=== PATIENT | male | born 1970 | race Caucasian/White ===

== ENCOUNTER 2021-10-05 20:32 | Emergency (ER) | payer OTHER ==
[2021-10-05] MEDS ORDERED: Sodium Chloride 0.9% 1000 ML 1,000 ML IV STA (20:44)
[2021-10-05] MEDS ORDERED: Sodium Chloride 0.9% 1000 ML 1,000 ML ONE (20:52)
[2021-10-05 21:06] LABS: Absolute Neutrophil Ct (ANC) 6.12 (1.4-6.9); Basophil (Absolute #) 0 (0-0.4); Eosinophil (Absolute #) 0 (0-0.5); Hemoglobin 13.8 gm/dl (12.5-18.0); Lymphocytes % 7.2 % (24.0-44.0); Mean Corpuscular Hemoglobin 29.6 pg (26-32); Mean Corpuscular Hgb Concent. 33.7 g/dl (32-36); Mean Platelet Volume 10.2 fl (7.5-11.0); Monocyte (Absolute #) 0.33 (0.0-1.3); Monocytes % 4.7 % (0.0-12.0); Neutrophil % 88.1 % (36.0-66.0); Platelet Count 180 K/mm3 (150-450); Red Blood Count 4.66 M/mm3 (4.1-5.6); Red Cell Distribution Width 12.1 % (11.5-14.0)
--- NOTE | 2021-10-05 21:14 | ERPHSYRPT ---
- History of Present Illness Time Seen by Provider: 10/05/21 21:10 Source: patient Physician History: Patient is a 51-year-old male presents to our ED for evaluation of generalized body aches and shortness of breath. Patient symptoms started approximately 9 days ago. Symptoms have been progressive. Patient took a home Covid test today which resulted as positive. Symptoms are constant. Symptoms are moderate in intensity. No specific worsening or improving factors. Patient denies associa steffanie chest pain. No nausea vomiting or diaphoresis. No diarrhea. No rash. Patient states he is otherwise healthy. He voices no other complaints or concerns at this time. Timing/Duration: day(s) Severity: moderate Modifying Factors: Improves With: nothing Associated Symptoms: shortness of breath, No nausea, No vomiting, No abdominal pain, No diaphoresis, No cough, No chills, No headaches, No syncope, No seizure, No weakness Allergies/Adverse Reactions: Penicillins Allergy (Verified 10/05/21 20:43) - Review of Systems Constitutional: No Symptoms, No Fever, No Chills Eyes: No Symptoms Ears, Nose, & Throat: No Symptoms Respiratory: No Symptoms, No Cough, No Dyspnea Cardiac: No Symptoms, No Chest Pain, No Edema, No Syncope Abdominal/Gastrointestinal: No Symptoms, No Abdominal Pain, No Nausea, No Vomiting, No Diarrhea Genitourinary Symptoms: No Symptoms, No Dysuria Musculoskeletal: No Symptoms, No Back Pain, No Neck Pain Skin: No Symptoms, No Rash Neurological: No Symptoms, No Dizziness, No Focal Weakness, No Sensory Changes Psychological: No Symptoms Endocrine: No Symptoms Hematologic/Lymphatic: No Symptoms Immunological/Allergic: No Symptoms All Other Systems: Reviewed and Negative - Nursing Vital Signs Nursing Vital Signs: Initial Vital Signs Temperature 99.8 F 10/05/21 21:04 Pulse Rate 84 10/05/21 21:04 Respiratory Rate 18 10/05/21 21:04 Blood Pressure 116/67 10/05/21 21:04 O2 Sat by Pulse Oximetry 94 L 10/05/21 21:04 Pain Scale Pain Intensity 6 - Physical Exam General Appearance: no apparent distress, alert Eye Exam: PERRL/EOMI, eyes nml inspection Ears, Nose, Throat Exam: normal ENT inspection, TMs normal, pharynx normal, moist mucous membranes Neck Exam: normal inspection, non-tender, supple, full range of motion Respiratory Exam: normal breath sounds, lungs clear, airway intact, No respiratory distress Cardiovascular Exam: regular rate/rhythm, normal heart sounds, normal peripheral pulses Gastrointestinal/Abdomen Exam: soft, normal bowel sounds, No tenderness, No mass Back Exam: normal inspection, normal range of motion, No CVA tenderness, No vertebral tenderness Extremity Exam: normal inspection, normal range of motion, pelvis stable Neurologic Exam: alert, oriented x 3, cooperative, normal mood/affect, nml cerebellar function, nml station & gait, sensation nml, No motor deficits Skin Exam: normal color, warm, dry, No rash Lymphatic Exam: No adenopathy SpO2 Interpretation: normal SpO2: 94 O2 Delivery: Room Air - Course Nursing assessment & vital signs reviewed: Yes EKG Interpreted by Me: RATE (80), Sinus Rhythm - Radiology Exams Chest X-ray Interpretation: Interpreted by me (Bilateral pulmonary opacities consistent with Covid pneumonia. Normal cardiac silhouette. Intact bony thorax.) Ordered Tests: Active Orders 24 hr Category Date Time Status Fabrication Inspector STAT Care 10/05/21 20:45 Active EKG-ER Only STAT Care 10/05/21 20:44 Active IV Insertion STAT Care 10/05/21 20:44 Active Pulse Oximetry (ED) STAT Care 10/05/21 20:44 Active CHEST 1 VIEW (PORTABLE) Stat Exams 10/05/21 20:45 Taken CBC W DIFF Stat Lab 10/05/21 21:03 Completed CMP Stat Lab 10/05/21 21:03 Completed MAGNESIUM Stat Lab 10/05/21 21:03 Completed TROPONIN Q3H Lab 10/05/21 21:03 Completed TROPONIN Q3H Lab 10/05/21 23:45 Ordered TROPONIN Q3H Lab 10/06/21 02:45 Ordered TROPONIN Q3H Lab 10/06/21 05:45 Ordered TROPONIN Q3H Lab 10/06/21 08:45 Ordered Medication Summary Discontinued Medications Generic Name Dose Route Start Last Admin Trade Name Freq PRN Reason Stop Dose Admin Calcium Gluconate 1,000 mg 10/05/21 21:56 10/05/21 22:07 Calcium Gluconate 1000 Mg/10 Ml Vial IV 10/05/21 21:57 1,000 mg STAT ONE Administration Calcium Gluconate Confirm 10/05/21 22:03 Calcium Gluconate 1000 Mg/10 Ml Vial Administered 10/05/21 22:04 Dose 1,000 mg IV .STK-MED ONE Dexamethasone Sodium Phosphate 8 mg 10/05/21 22:06 10/05/21 22:07 Dexamethasone Sod Phosphate 10 Mg/Ml IV 10/05/21 22:07 8 mg STAT ONE Administration Dexamethasone Sodium Phosphate Confirm 10/05/21 22:07 Dexamethasone Sod Phosphate 10 Mg/Ml Administered 10/05/21 22:08 Dose 10 mg .ROUTE .STK-MED ONE Sodium Chloride 1,000 mls @ 999 mls/hr 10/05/21 20:44 10/05/21 22:40 Sodium Chloride 0.9% 1000 Ml IV 10/05/21 21:44 Infused .Q1H1M STA Infusion Sodium Chloride Confirm 10/05/21 20:52 Sodium Chloride 0.9% 1000 Ml Administered 10/05/21 20:53 Dose 1,000 mls @ ud .ROUTE .STK-MED ONE Lab/Rad Data: Laboratory Result Diagrams 10/05/21 21:03 10/05/21 21:03 Laboratory Results 10/05/21 10/05/21 10/05/21 Range/Units 21:03 21:03 21:03 WBC 7.0 (4.0-10.5) K/mm3 RBC 4.66 (4.1-5.6) M/mm3 Hgb 13.8 (12.5-18.0) gm/dl Hct 41.0 L (42-50) % MCV 88.0 (78-100) fl MCH 29.6 (26-32) pg MCHC 33.7 (32-36) g/dl RDW 12.1 (11.5-14.0) % Plt Count 180 (150-450) K/mm3 MPV 10.2 (7.5-11.0) fl Gran % 88.1 H (36.0-66.0) % Eos # (Auto) 0 (0-0.5) Absolute Lymphs (auto) 0.50 L (1.0-4.6) Absolute Monos (auto) 0.33 (0.0-1.3) Lymphocytes % 7.2 L (24.0-44.0) % Monocytes % 4.7 (0.0-12.0) % Eosinophils % 0.0 (0.00-5.0) % Basophils % 0.0 (0.0-0.4) % Absolute Granulocytes 6.12 (1.4-6.9) Basophils # 0 (0-0.4) Sodium 135 L (137-145) mmol/L Potassium 3.8 (3.5-5.1) mmol/L Chloride 103 (98-107) mmol/L Carbon Dioxide 23 (22-30) mmol/L Anion Gap 12.6 (5-15) MEQ/L BUN 13 (9-20) mg/dL Creatinine 0.82 (0.66-1.25) mg/dL Estimated GFR > 60.0 ML/MIN Glucose 113 H (74-106) mg/dL Calcium 8.1 L (8.4-10.2) mg/dL Magnesium 2.0 (1.6-2.3) mg/dL Total Bilirubin 0.50 (0.2-1.3) mg/dL AST 54 (17-59) U/L ALT 35 (0-50) U/L Alkaline Phosphatase 74 (38-126) U/L Troponin I < 0.012 (0.000-0.034) ng/mL Serum Total Protein 6.8 (6.3-8.2) g/dL Albumin 3.8 (3.5-5.0) g/dL - Progress Progress: improved Progress Note: Patient reassessed. He feels much better. Patient requesting discharge. Patient ambulated in our ED. Patient maintained an oxygen saturation of 94% with exertion. Patient did not feel shortness of breath. Work-up reveals mild hyponatremia. IV fluids infused. Mild hypocalcemia. Patient received calcium in our ED. Chest x-ray revealed bilateral opacities consistent with Covid pneumonia. Patient is Covid positive. Labs otherwise essentially nonremarkable. Will discharge patient home. We will forward a prescription for azithromycin to patient's pharmacy. Patient received 8 milligram dose of Decadron in our ED. Patient will follow up with the respiratory clinic this or Tuesday. Patient understands indications to return to our ED. He has a pulse oximeter at home. He will monitor his oxygen levels at home and if he starts to trend downward into the lower 90s patient will return to our ED for a reevaluation. He denies chest pain. No nausea or vomiting. No dizziness. Patient lives at home with his . He states that he has assistance if he needs. Portions of this note were created with voice recognition technology. There may be grammatical, spelling, punctuation or sound alike errors 10/05/21 22:50 10/05/21 22:52 Counseled pt/family regarding: lab results, diagnosis, need for follow-up, rad results - Departure Departure Disposition: Home Clinical Impression: Hypocalcemia, Hyponatremia, COVID-19, Pneumonia due to COVID-19 virus Condition: Stable Critical Care Time: No Referrals: OLGA LIDIA LEE [Primary Care Provider] - Follow up/PCP as directed Additional Instructions: Discharge/Care Plan NAOMI BOSTON SR was seen on 10/05/21 in the Emergency Room. The patient was counseled regarding Diagnosis,Lab results, Imaging studies, need for follow up and when to return to the Emergency Room. Prescriptions given: Discharge Note I have spoken with the patient and/or caregivers. I have explained the patient's condition, diagnosis and treatment plan based on the information available to me at this time. I have answered the patient's and/or caregiver's questions and addressed any concerns. The patient and/or caregivers have as good understanding of the patient's diagnosis, condition and treatment plan as can be expected at this point. The vital signs have been stable. The patient's condition is stable and appropriate for discharge from the emergency department. The patient will pursue further outpatient evaluation with the primary care physician or other designated or consulting physician as outlined in the discharge instructions. The patient and/or caregivers are agreeable to this plan of care and follow-up instructions have been explained in detail. The patient and/or caregivers have received these instruction. The patient/and or caregivers are aware that any significant change in condition or worsening of symptoms should prompt an immediate return to this or the closest emergency department or call 911. Prescriptions: Azithromycin 250 mg [Zithromax 250 MG TABLET] 250 mg PO ZPACK #6 tablet
[2021-10-05 21:21] VITALS: O2SAT 94
[2021-10-05 21:28] LABS: ALBUMIN 3.8 g/dL (3.5-5.0); ALKALINE PHOSPHATASE 74 U/L (38-126); ANION GAP 12.6 MEQ/L (5-15); BLOOD UREA NITROGEN 13 mg/dL (9-20); CHLORIDE 103 mmol/L (98-107); Calcium 8.1 mg/dL (8.4-10.2); Carbon Dioxide 23 mmol/L (22-30); Creatinine 1 0.82 mg/dL (0.66-1.25); EST GLOMERULAR FILTRATION RATE > 60.0 ML/MIN; Glucose 113 mg/dL (74-106); Potassium 3.8 mmol/L (3.5-5.1); SGOT/AST 54 U/L (17-59); SGPT/ALT 35 U/L (0-50); SODIUM 135 mmol/L (137-145); Total Protein 6.8 g/dL (6.3-8.2)
[2021-10-05] MEDS ORDERED: Calcium Gluconate 10% 1000 MG IV ONE ×2 (21:56→22:03)
[2021-10-05] MEDS ORDERED: DECADRON 10MG INJ. IV ONE (22:06)
[2021-10-05] MEDS ORDERED: DECADRON 10MG INJ. ONE (22:07)
[2021-10-05 22:10] VITALS: BP 108/62; PULSE 80
[2021-10-05 23:17] LABS: Slide Review 1 YES
--- NOTE | 2021-10-06 08:47 | XRAY ---
Indication: Short of breath. Positive Covid 19. Comparison: None Portable chest demonstrates subtle hazy patchy bilateral airspace disease without consolidation/large effusion. Remaining heart and bony thorax are unremarkable.
== END 2021-10-05 23:01 | disposition home or self-care (01) ==
LOC: ED 20:32
DX: U07.1 COVID-19 (principal); J12.82 Pneumonia due to coronavirus disease 2019; E83.51 Hypocalcemia; E87.1 Hypo-osmolality and hyponatremia; M79.18 Myalgia, other site
CPT/HCPCS: 36000; 36415; 71045; 80053; 83735; 84484; 85025; 93005; 93041; 94760; 96360; 96374; 99284; J0610; J1100